=== PATIENT | female | born 1960 | race Two or more races ===

== ENCOUNTER 2023-01-01 11:20 | Emergency (ER) | payer OTHER ==
[~2023-01-01] VITALS: Ht 152.4 cm; Wt 81.6 kg
[2023-01-01 11:36] VITALS: BP 138/91
--- NOTE | 2023-01-01 11:40 | NUR ---
62/F WALKED IN C/O RECTAL PAIN ONSET 6 DAYS. DENIES RECTAL BLEEDING. PT WAS REFERRED BY [facility], AAO4, AMBULATORY, VITALS STABLE, NO ACUTE DISTRESS.
[2023-01-01] MEDS ORDERED: KETOROLAC 30 MG/ML VIAL IM ONE (12:05)
[2023-01-01] MEDS ORDERED: HYDROcodone/APAP 10/325 MG 1 TAB TAB PO STA (13:19)
[2023-01-01] MEDS ORDERED: LIDO28CR2 TP ×2 (13:30→13:46)
[2023-01-01] MEDS ORDERED: IBUP-2213 PO ×2 (13:30→13:46)
[2023-01-01] MEDS ORDERED: HYDR-2734 TP ×2 (13:30→13:46)
[2023-01-01] MEDS ORDERED: PSYL0.4C2 PO ×2 (13:30→13:46)
== END 2023-01-01 13:55 | disposition home or self-care (01) ==
LOC: MED 11:20
DX: K64.4 Residual hemorrhoidal skin tags (principal); Z88.0 Allergy status to penicillin
CPT/HCPCS: 96372; 99283; J1885